=== PATIENT | female | born 1995 | race Caucasian/White ===

== ENCOUNTER 2021-04-25 20:32 | Emergency (ER) | payer SELFPAY ==
[~2021-04-25] VITALS: Ht 175.3 cm; Wt 79.0 kg
[2021-04-25 21:03] VITALS: BP 133/68
== END 2021-04-25 23:47 | disposition left against medical advice (07) ==
LOC: ER 20:32
DX: Z53.21 Procedure and treatment not carried out due to patient leaving prior to being seen by health care provider (principal)